=== PATIENT | male | born 1975 | race African-American/Black ===

== ENCOUNTER 2019-05-03 17:33 | Emergency (ER) | payer SELFPAY | END 2019-05-03 17:49 | disposition left against medical advice (07) | LOC: EMS 17:33 | DX: M54.2 Cervicalgia (principal); Z53.21 Procedure and treatment not carried out due to patient leaving prior to being seen by health care provider ==

== ENCOUNTER 2019-05-03 18:16 | Emergency (ER) | payer MEDICAID ==
[~2019-05-03] VITALS: Ht 177.8 cm; Wt 77.3 kg
[2019-05-03] MEDS ORDERED: METHOCARBAMOL 500 MG TABLET PO ONE (19:45)
[2019-05-03] MEDS ORDERED: KETOROLAC TROMETHAMINE 30 MG/ML VIAL IM ONE (19:45)
[2019-05-03 20:36] VITALS: BP 136/90
== END 2019-05-03 20:57 | disposition home or self-care (01) ==
LOC: EMS 18:16
DX: M62.838 Other muscle spasm (principal); F17.210 Nicotine dependence, cigarettes, uncomplicated
CPT/HCPCS: 96372; 99283; 99406; J1885